=== PATIENT | female | born 1940 | race Caucasian/White ===

== ENCOUNTER 2018-04-28 06:39 | Inpatient (IN) ==
[2018-04-28 07:44] LABS: Basophils % 0.3 % (0.0-0.8); Eosinophils # 0.2 10*3/uL (0.0-0.87); Eosinophils % 1.1 % (0.00-10.9); Hematocrit 36.8 VOL% (35.7-47.0); Hemoglobin 11.9 GM/DL (12.0-16.0); Immature Granulocytes % 1.3 %; Lymphocytes # 3.4 10*3/uL (1.4-4.0); Lymphocytes % 21.6 % (21.3-54.2); Mean Corpuscular HGB Conc 32.3 GM/DL (32-36); Mean Corpuscular Hemoglobin 33 PG (27-34); Mean Corpuscular Volume 102.5 FL (87-102); Mean Platelet Volume 13.6 FL (9.6-12.0); Monocytes # 1.1 10*3/uL (0.11-0.8); Monocytes % 7.2 % (1.7-12.7); Neutrophils # 10.9 10*3/uL (1.4-7.4); Neutrophils % 68.5 % (38.7-73.9); Platelet Count 155 T/CUMM (130-400); Red Blood Count 3.59 MC/CUMM (3.8-5.5); Red Cell Distribution Width 14.2 % (9.3-17.3); White Blood Count 15.9 T/CUMM (4-12)
[2018-04-28] MEDS ORDERED: LACTATED RINGERS 1,000 ML IV ONE (07:51)
[2018-04-28 07:52] LABS: Apearance,Urine CLEAR (Clear); Bacteria,Urine Few /HPF (Few); Bilirubin,Urine Negative (Negative); Blood, Urine Small mg/dL (Negative); Glucose,Urine (UA) Negative (Negative); Ketones,Urine Negative (Negative); Mucus,Urine Occasional /LPF (Occasional); Nitrite,Urine Negative (Negative); Protein,Urine Negative; RBC,Urine 1 /HPF (0-4); Urine Color Yellow (Yellow); Urine Urobilinogen < 2.0 EU/DL (0.2-1.0); WBC,Urine 6 /HPF (0-6)
[2018-04-28 07:53] LABS: INR 1.1; PT Patient Result 11.3 SECS; Partial Thromboplastin Time 22.9 SECS (0-40)
[2018-04-28 08:04] LABS: Lactic Acid 1.6 MMOL/L (0.4-2.0)
[2018-04-28 08:05] LABS: Troponin I Only < 0.015 NG/ML (0.00-0.045)
[2018-04-28 08:29] LABS: Albumin 3.2 G/DL (3.4-5.0); Bilirubin,Total 0.7 MG/DL (0.2-1.0); Calcium 8.6 MG/DL (8.5-10.1); Potassium 3.3 MMOL/L (3.5-5.1); Total Protein 5.9 G/DL (6.4-8.3)
[2018-04-28] MEDS ORDERED: ONDANSETRON 4 MG/2 ML VIAL ONE (08:30)
[2018-04-28] MEDS ORDERED: cefTRIAXone 1,000 MG in SODIUM CHLORIDE 0.9% 100 ML IV STA (08:52)
[2018-04-28] MEDS ORDERED: ONDANSETRON 4 MG/2 ML VIAL IV STA (09:28)
[2018-04-28] MEDS ORDERED: FUROSEMIDE 40 MG/4 ML VIAL IV STA (10:10)
[2018-04-28] MEDS ORDERED: MORPHINE 4 MG/1 ML VIAL IV PRN (11:44)
[2018-04-28] MEDS ORDERED: ONDANSETRON 4 MG/2 ML VIAL IV PRN (11:44)
[2018-04-28] MEDS: SODIUM CHLORIDE 0.9% 1,000 ML IV SCH ×2 (15:13→23:06)
[2018-04-28 16:56] LABS: Hematocrit 37.1 VOL% (35.7-47.0); Hemoglobin 11.9 GM/DL (12.0-16.0)
[2018-04-28] MEDS ORDERED: POTASSIUM CHLORIDE 20 MEQ TABLET PO ONE (20:00)
[2018-04-28] MEDS: PANTOPRAZOLE 40 MG TABLET PO SCH (20:16)
[2018-04-29 01:31] LABS: Basophils % 0.3 % (0.0-0.8); Eosinophils % 0.2 % (0.00-10.9); Hematocrit 33.2 VOL% (35.7-47.0); Hemoglobin 10.7 GM/DL (12.0-16.0); Immature Granulocytes % 0.6 %; Immature Granulocytes Absolute 0.08 #; Lymphocytes # 6.7 10*3/uL (1.4-4.0); Lymphocytes % 48.9 % (21.3-54.2); Mean Corpuscular HGB Conc 32.2 GM/DL (32-36); Mean Corpuscular Hemoglobin 33 PG (27-34); Mean Corpuscular Volume 102.5 FL (87-102); Mean Platelet Volume 12.9 FL (9.6-12.0); Monocytes # 1.4 10*3/uL (0.11-0.8); Monocytes % 10.5 % (1.7-12.7); Neutrophils # 5.4 10*3/uL (1.4-7.4); Neutrophils % 39.5 % (38.7-73.9); Platelet Count 142 T/CUMM (130-400); Red Blood Count 3.24 MC/CUMM (3.8-5.5); Red Cell Distribution Width 14.1 % (9.3-17.3); White Blood Count 13.7 T/CUMM (4-12)
[2018-04-29 01:32] LABS: Hematocrit 33.3 VOL% (35.7-47.0); Hemoglobin 10.6 GM/DL (12.0-16.0)
[2018-04-29 02:15] LABS: Calcium 7.8 MG/DL (8.5-10.1); Osmolality,Calculated 296.8 MOS/KG (273-304); Potassium 3.3 MMOL/L (3.5-5.1); Thyroid Stimulating Hormone 0.585 uIU/ml (0.358-3.74); VLDL CHOLESTEROL 13.2 MG/DL
[2018-04-29] MEDS ORDERED: MAGNESIUM SULF RIDER 4 GM in PREMIX 1 EACH IV PRN (07:43)
[2018-04-29] MEDS ORDERED: PANTOPRAZOLE 40 MG TABLET PO SCH (09:00)
[2018-04-29 09:18] LABS: Hemoglobin 10.7 GM/DL (12.0-16.0)
[2018-04-29] MEDS: PANTOPRAZOLE 40 MG TABLET PO SCH ×2 (09:19→21:16)
[2018-04-29] MEDS: cefTRIAXone 1,000 MG in SYRINGE 1 EACH IV SCH (09:23)
[2018-04-29] MEDS ORDERED: ETOMIDATE 20 MG/10 ML VIAL IV ONE (13:28)
[2018-04-29] MEDS: POTASSIUM CHLORIDE 20 MEQ TABLET PO PRN ×2 (14:35→17:24)
[2018-04-29] MEDS: SODIUM CHLORIDE 0.9% 1,000 ML IV SCH ×2 (14:35→21:16)
[2018-04-29] MEDS: MAGNESIUM SULF RIDER 2 GM in PREMIX 1 EACH IV PRN (14:36)
[2018-04-30] MEDS: ACETAMINOPHEN 325 MG TABLET PO PRN (00:49)
[2018-04-30] MEDS: SODIUM CHLORIDE 0.9% 1,000 ML IV SCH ×2 (05:26→22:09)
[2018-04-30 06:26] LABS: Basophils % 0.2 % (0.0-0.8); Eosinophils # 0.1 10*3/uL (0.0-0.87); Hematocrit 31.9 VOL% (35.7-47.0); Hemoglobin 10.4 GM/DL (12.0-16.0); Immature Granulocytes % 0.7 %; Immature Granulocytes Absolute 0.09 #; Lymphocytes # 4.9 10*3/uL (1.4-4.0); Lymphocytes % 38.1 % (21.3-54.2); Mean Corpuscular HGB Conc 32.6 GM/DL (32-36); Mean Corpuscular Hemoglobin 34 PG (27-34); Mean Corpuscular Volume 103.6 FL (87-102); Mean Platelet Volume 13.4 FL (9.6-12.0); Monocytes % 15.8 % (1.7-12.7); NRBC # 0.02 10*3/uL; Neutrophils # 5.7 10*3/uL (1.4-7.4); Neutrophils % 44.2 % (38.7-73.9); Platelet Count 125 T/CUMM (130-400); Red Blood Count 3.08 MC/CUMM (3.8-5.5); Red Cell Distribution Width 14.2 % (9.3-17.3); White Blood Count 12.9 T/CUMM (4-12)
[2018-04-30 06:55] LABS: Calcium 8.3 MG/DL (8.5-10.1); Osmolality,Calculated 292.8 MOS/KG (273-304); Potassium 3.7 MMOL/L (3.5-5.1)
[2018-04-30 07:11] LABS: Band Neutrophils 2 % (0-10); Lymphocytes 41 % (20-55); Segmented Neutrophils 50 % (50-85); Total Cells Counted 100
[2018-04-30 07:12] LABS: Acanthocytes Few; Macrocytosis 3+; Platelet Estimate Decreased
[2018-04-30] MEDS: cefTRIAXone 1,000 MG in SYRINGE 1 EACH IV SCH (08:36)
[2018-04-30] MEDS: PANTOPRAZOLE 40 MG TABLET PO SCH ×2 (08:42→22:08)
[2018-04-30] MEDS ORDERED: SKIN HEALING OINT (AQUAPHOR) 50 GM TUBE TOP PRN (13:33)
[2018-04-30] MEDS ORDERED: TUBERCULIN SKIN TEST 0.1 ML SYRINGE INTRADERM ONE (15:00)
[2018-05-01] MEDS: SODIUM CHLORIDE 0.9% 1,000 ML IV SCH ×2 (05:56→22:44)
[2018-05-01 06:50] LABS: Basophils # 0.1 10*3/uL (0.0-0.2); Basophils % 0.3 % (0.0-0.8); Eosinophils # 0.2 10*3/uL (0.0-0.87); Hematocrit 33.6 VOL% (35.7-47.0); Hemoglobin 10.9 GM/DL (12.0-16.0); Immature Granulocytes % 1.1 %; Immature Granulocytes Absolute 0.17 #; Lymphocytes # 4.2 10*3/uL (1.4-4.0); Mean Corpuscular HGB Conc 32.4 GM/DL (32-36); Mean Corpuscular Hemoglobin 33 PG (27-34); Mean Corpuscular Volume 102.1 FL (87-102); Mean Platelet Volume 13.7 FL (9.6-12.0); Monocytes # 2.2 10*3/uL (0.11-0.8); Monocytes % 14.7 % (1.7-12.7); Neutrophils # 8.1 10*3/uL (1.4-7.4); Neutrophils % 54.9 % (38.7-73.9); Platelet Count 152 T/CUMM (130-400); Red Blood Count 3.29 MC/CUMM (3.8-5.5); Red Cell Distribution Width 13.9 % (9.3-17.3); White Blood Count 14.9 T/CUMM (4-12)
[2018-05-01 07:07] LABS: Calcium 8.4 MG/DL (8.5-10.1); Osmolality,Calculated 288.8 MOS/KG (273-304); Potassium 3.5 MMOL/L (3.5-5.1)
[2018-05-01] MEDS: BISACODYL 5 MG TABLET PO SCH ×2 (09:27→16:27)
[2018-05-01] MEDS: PANTOPRAZOLE 40 MG TABLET PO SCH ×2 (09:27→20:39)
[2018-05-01] MEDS: cefTRIAXone 1,000 MG in SYRINGE 1 EACH IV SCH (09:28)
[2018-05-01] MEDS ORDERED: POLYETHYLENE GLYCOL POWDER 255 GM BOTTLE PO ONE (18:00)
[2018-05-01] MEDS ORDERED: MAGNESIUM CITRATE 300 ML BOTTLE PO ONE (21:00)
[2018-05-02] MEDS ORDERED: BISACODYL 5 MG TABLET PO SCH (03:00)
[2018-05-02] MEDS: BISACODYL 5 MG TABLET PO SCH (03:10)
[2018-05-02] MEDS ORDERED: LIDOCAINE 100 MG/5 ML SYRINGE ONE (09:00)
[2018-05-02] MEDS ORDERED: PROPOFOL 200 MG/20 ML VIAL IV ONE (09:00)
[2018-05-02] MEDS: SODIUM CHLORIDE 0.9% 1,000 ML IV SCH ×2 (09:11→14:52)
[2018-05-02] MEDS: COLESTIPOL 1 GM TABLET PO SCH ×2 (09:12→23:52)
[2018-05-02] MEDS: cefTRIAXone 1,000 MG in SYRINGE 1 EACH IV SCH (09:13)
[2018-05-02] MEDS: PANTOPRAZOLE 40 MG TABLET PO SCH ×2 (09:13→20:34)
[2018-05-02] MEDS: ACETAMINOPHEN 325 MG TABLET PO PRN (12:39)
[2018-05-03] MEDS: ACETAMINOPHEN 325 MG TABLET PO PRN (00:26)
[2018-05-03] MEDS ORDERED: OXYMETAZOLINE 0.05% NASAL SPRAY 15 ML BOTTLE ONE (06:22)
[2018-05-03] MEDS ORDERED: MUPIROCIN 2% OINT 22 GM TUBE TOP ONE (06:22)
[2018-05-03] MEDS ORDERED: LIDOCAINE 1%/EPI INJ 20 ML VIAL ONE (06:22)
[2018-05-03] MEDS ORDERED: FAMOTIDINE 20 MG TABLET PO ONE (07:00)
[2018-05-03] MEDS ORDERED: DIAZEPAM 5 MG TABLET PO ONE (07:00)
[2018-05-03 07:07] LABS: Basophils # 0.1 10*3/uL (0.0-0.2); Basophils % 0.5 % (0.0-0.8); Eosinophils # 0.2 10*3/uL (0.0-0.87); Eosinophils % 1.3 % (0.00-10.9); Immature Granulocytes % 1.2 %; Lymphocytes # 3.4 10*3/uL (1.4-4.0); Lymphocytes % 20.1 % (21.3-54.2); Mean Corpuscular HGB Conc 33.3 GM/DL (32-36); Mean Corpuscular Hemoglobin 33 PG (27-34); Mean Corpuscular Volume 100.3 FL (87-102); Mean Platelet Volume 12.9 FL (9.6-12.0); Monocytes # 2.7 10*3/uL (0.11-0.8); Monocytes % 15.8 % (1.7-12.7); NRBC # 0.03 10*3/uL; Neutrophils # 10.4 10*3/uL (1.4-7.4); Neutrophils % 61.1 % (38.7-73.9); Platelet Count 233 T/CUMM (130-400); Red Blood Count 3.29 MC/CUMM (3.8-5.5); White Blood Count 17.1 T/CUMM (4-12)
[2018-05-03 07:32] LABS: Hypochromasia 1+; Lymphocytes 18 % (20-55); Myelocytes 1 %; Segmented Neutrophils 67 % (50-85); Total Cells Counted 100
[2018-05-03 07:33] LABS: Acanthocytes Few; Howell-Jolly Bodies Slight; Macrocytosis Slight
[2018-05-03 07:34] LABS: Ovalocytes Slight; Platelet Estimate Normal
[2018-05-03 07:43] LABS: Calcium 8.8 MG/DL (8.5-10.1); Osmolality,Calculated 288.8 MOS/KG (273-304); Potassium 3.6 MMOL/L (3.5-5.1)
[2018-05-03] MEDS ORDERED: cefTRIAXone 1,000 MG VIAL ONE (08:57)
[2018-05-03] MEDS ORDERED: BACITRACIN OINT 0.9 GM PACK TOP ONE (09:30)
[2018-05-03] MEDS ORDERED: BALANCED SALT IRRIG SOLN 15 ML BOTTLE ONE (09:30)
[2018-05-03] MEDS ORDERED: BACITRACIN OPH OINT 3.5 GM TUBE ONE (09:32)
[2018-05-03] MEDS: SODIUM CHLORIDE 0.9% 1,000 ML IV SCH ×2 (10:03→16:48)
[2018-05-03] MEDS ORDERED: SEVOFLURANE 1 UNIT/15 MINUTE INH ONE (10:06)
[2018-05-03] MEDS ORDERED: fentaNYL 100 MCG/2 ML VIAL ONE (10:06)
[2018-05-03] MEDS ORDERED: PROPOFOL 200 MG/20 ML VIAL IV ONE (10:06)
[2018-05-03] MEDS ORDERED: ACETAMINOPHEN 1,000 MG/100 ML VIAL IV ONE (10:07)
[2018-05-03] MEDS ORDERED: KETAMINE 500 MG/10 ML VIAL ONE (10:07)
[2018-05-03] MEDS ORDERED: DEXAMETHASONE 10 MG/1 ML VIAL ONE (10:07)
[2018-05-03] MEDS ORDERED: ONDANSETRON 4 MG/2 ML VIAL ONE (10:07)
[2018-05-03] MEDS: cefTRIAXone 1,000 MG in SYRINGE 1 EACH IV SCH (11:04)
[2018-05-03] MEDS: MAGNESIUM SULF RIDER 2 GM in PREMIX 1 EACH IV PRN (11:04)
[2018-05-03] MEDS: PANTOPRAZOLE 40 MG TABLET PO SCH ×2 (13:52→21:22)
[2018-05-03] MEDS: POTASSIUM CHLORIDE 20 MEQ TABLET PO PRN ×2 (13:52→17:10)
[2018-05-03] MEDS: COLESTIPOL 1 GM TABLET PO SCH ×2 (16:47→21:14)
[2018-05-03] MEDS: ZINC OXIDE PASTE 113 GM TUBE TOP SCH ×2 (16:48→21:22)
[2018-05-03] MEDS: COLCHICINE 0.6 MG TABLET PO SCH ×2 (17:10→21:22)
[2018-05-04 08:54] LABS: Basophils % 0.1 % (0.0-0.8); Hematocrit 33.1 VOL% (35.7-47.0); Hemoglobin 10.6 GM/DL (12.0-16.0); Immature Granulocytes % 1.2 %; Immature Granulocytes Absolute 0.17 #; Lymphocytes # 0.9 10*3/uL (1.4-4.0); Lymphocytes % 6.3 % (21.3-54.2); Mean Corpuscular Hemoglobin 33 PG (27-34); Mean Corpuscular Volume 103.1 FL (87-102); Mean Platelet Volume 12.8 FL (9.6-12.0); Monocytes # 1.1 10*3/uL (0.11-0.8); Monocytes % 7.4 % (1.7-12.7); NRBC # 0.02 10*3/uL; Neutrophils # 12.1 10*3/uL (1.4-7.4); Platelet Count 250 T/CUMM (130-400); Red Blood Count 3.21 MC/CUMM (3.8-5.5); Red Cell Distribution Width 13.9 % (9.3-17.3); White Blood Count 14.2 T/CUMM (4-12)
[2018-05-04] MEDS: COLCHICINE 0.6 MG TABLET PO SCH (09:12)
[2018-05-04] MEDS: COLESTIPOL 1 GM TABLET PO SCH (09:12)
[2018-05-04] MEDS: TOPIRAMATE 25 MG TABLET PO SCH ×2 (09:13→15:39)
[2018-05-04] MEDS: PANTOPRAZOLE 40 MG TABLET PO SCH (09:13)
[2018-05-04 09:16] LABS: Calcium 8.8 MG/DL (8.5-10.1); Osmolality,Calculated 297.7 MOS/KG (273-304); Potassium 4.5 MMOL/L (3.5-5.1)
[2018-05-04] MEDS: ZINC OXIDE PASTE 113 GM TUBE TOP SCH (12:05)
[2018-05-04] MEDS: POLYMYXIN/TRIMETHOPRIM OPH SOL 10 ML BOTTLE LEFT EYE SCH ×7 (12:05→22:31)
[2018-05-05] MEDS: POLYMYXIN/TRIMETHOPRIM OPH SOL 10 ML BOTTLE LEFT EYE SCH ×12 (00:31→22:06)
[2018-05-05] MEDS: TOPIRAMATE 25 MG TABLET PO SCH ×4 (03:29→22:06)
[2018-05-05] MEDS: PANTOPRAZOLE 40 MG TABLET PO SCH ×3 (03:29→22:06)
[2018-05-05] MEDS: COLESTIPOL 1 GM TABLET PO SCH ×3 (03:30→22:06)
[2018-05-05] MEDS: ZINC OXIDE PASTE 113 GM TUBE TOP SCH ×3 (03:30→22:06)
[2018-05-05] MEDS: COLCHICINE 0.6 MG TABLET PO SCH ×3 (03:30→22:06)
[2018-05-05 05:56] LABS: Basophils % 0.1 % (0.0-0.8); Eosinophils % 0.2 % (0.00-10.9); Hematocrit 30.5 VOL% (35.7-47.0); Hemoglobin 9.8 GM/DL (12.0-16.0); Immature Granulocytes % 0.7 %; Immature Granulocytes Absolute 0.08 #; Lymphocytes # 1.8 10*3/uL (1.4-4.0); Mean Corpuscular HGB Conc 32.1 GM/DL (32-36); Mean Corpuscular Hemoglobin 33 PG (27-34); Mean Corpuscular Volume 101.7 FL (87-102); Mean Platelet Volume 12.8 FL (9.6-12.0); Monocytes # 1.2 10*3/uL (0.11-0.8); Monocytes % 10.2 % (1.7-12.7); NRBC # 0.04 10*3/uL; Neutrophils # 8.4 10*3/uL (1.4-7.4); Neutrophils % 72.8 % (38.7-73.9); Platelet Count 272 T/CUMM (130-400); Red Cell Distribution Width 14.4 % (9.3-17.3); White Blood Count 11.5 T/CUMM (4-12)
[2018-05-05 06:30] LABS: Calcium 8.8 MG/DL (8.5-10.1); Osmolality,Calculated 301.4 MOS/KG (273-304); Potassium 4.1 MMOL/L (3.5-5.1)
[2018-05-05] MEDS: ACETAMINOPHEN 325 MG TABLET PO PRN (22:05)
[2018-05-06] MEDS: POLYMYXIN/TRIMETHOPRIM OPH SOL 10 ML BOTTLE LEFT EYE SCH ×11 (01:35→20:57)
[2018-05-06 07:20] LABS: Basophils % 0.3 % (0.0-0.8); Eosinophils # 0.2 10*3/uL (0.0-0.87); Eosinophils % 2.3 % (0.00-10.9); Hematocrit 32.4 VOL% (35.7-47.0); Hemoglobin 10.4 GM/DL (12.0-16.0); Immature Granulocytes % 0.6 %; Immature Granulocytes Absolute 0.06 #; Lymphocytes # 2.7 10*3/uL (1.4-4.0); Lymphocytes % 25.5 % (21.3-54.2); Mean Corpuscular HGB Conc 32.1 GM/DL (32-36); Mean Corpuscular Hemoglobin 33 PG (27-34); Mean Corpuscular Volume 102.5 FL (87-102); Mean Platelet Volume 12.7 FL (9.6-12.0); Monocytes # 1.6 10*3/uL (0.11-0.8); Monocytes % 14.6 % (1.7-12.7); NRBC # 0.02 10*3/uL; Neutrophils % 56.7 % (38.7-73.9); Platelet Count 259 T/CUMM (130-400); Red Blood Count 3.16 MC/CUMM (3.8-5.5); Red Cell Distribution Width 14.2 % (9.3-17.3); White Blood Count 10.6 T/CUMM (4-12)
[2018-05-06 07:51] LABS: Calcium 8.7 MG/DL (8.5-10.1); Osmolality,Calculated 296.6 MOS/KG (273-304)
[2018-05-06] MEDS: TOPIRAMATE 25 MG TABLET PO SCH ×3 (09:49→20:56)
[2018-05-06] MEDS: COLESTIPOL 1 GM TABLET PO SCH ×2 (09:54→20:57)
[2018-05-06] MEDS: COLCHICINE 0.6 MG TABLET PO SCH ×2 (09:54→20:56)
[2018-05-06] MEDS: PANTOPRAZOLE 40 MG TABLET PO SCH ×2 (09:55→20:56)
[2018-05-06] MEDS: ZINC OXIDE PASTE 113 GM TUBE TOP SCH ×2 (09:55→23:45)
[2018-05-07] MEDS: POLYMYXIN/TRIMETHOPRIM OPH SOL 10 ML BOTTLE LEFT EYE SCH ×4 (01:55→09:29)
[2018-05-07] MEDS: COLESTIPOL 1 GM TABLET PO SCH (09:14)
[2018-05-07] MEDS: COLCHICINE 0.6 MG TABLET PO SCH (09:15)
[2018-05-07] MEDS: PANTOPRAZOLE 40 MG TABLET PO SCH (09:15)
[2018-05-07] MEDS: TOPIRAMATE 25 MG TABLET PO SCH (09:15)
[2018-05-07] MEDS: ZINC OXIDE PASTE 113 GM TUBE TOP SCH (09:49)
[2018-05-07 10:57] VITALS: BP 123/66
== END 2018-05-07 10:55 | DRG 982 ==
LOC: EDUNIT# → EDBD → N.ED 06:39 → N.EDINP 11:44 → SUATTDRO 11:44 → N.5E 12:55
PROVIDERS: ADMIT Internal Medicine; ATTEND Internal Medicine
PROC: COLONBX (2018-05-02 07:35)

== ENCOUNTER 2018-06-04 17:05 | Observation (INO) ==
[2018-06-04 19:42] LABS: Basophils # 0.1 10*3/uL (0.0-0.2); Basophils % 0.8 % (0.0-0.8); Eosinophils # 0.2 10*3/uL (0.0-0.87); Eosinophils % 1.6 % (0.00-10.9); Hematocrit 39.4 VOL% (35.7-47.0); Hemoglobin 12.4 GM/DL (12.0-16.0); Immature Granulocytes % 0.4 %; Immature Granulocytes Absolute 0.04 #; Lymphocytes # 2.2 10*3/uL (1.4-4.0); Lymphocytes % 22.8 % (21.3-54.2); Mean Corpuscular HGB Conc 31.5 GM/DL (32-36); Mean Corpuscular Hemoglobin 32 PG (27-34); Mean Corpuscular Volume 101.8 FL (87-102); Mean Platelet Volume 12.2 FL (9.6-12.0); Monocytes # 1.3 10*3/uL (0.11-0.8); Monocytes % 12.9 % (1.7-12.7); Neutrophils % 61.5 % (38.7-73.9); Platelet Count 334 T/CUMM (130-400); Red Blood Count 3.87 MC/CUMM (3.8-5.5); Red Cell Distribution Width 14.6 % (9.3-17.3); White Blood Count 9.7 T/CUMM (4-12)
[2018-06-04 19:57] LABS: PT Patient Result 10.6 SECS; Partial Thromboplastin Time 23.3 SECS (0-40)
[2018-06-04 20:07] LABS: Calcium 9.9 MG/DL (8.5-10.1); Osmolality,Calculated 291.6 MOS/KG (273-304)
[2018-06-05 07:27] LABS: Basophils # 0.1 10*3/uL (0.0-0.2); Basophils % 0.7 % (0.0-0.8); Eosinophils # 0.3 10*3/uL (0.0-0.87); Eosinophils % 2.7 % (0.00-10.9); Hematocrit 35.3 VOL% (35.7-47.0); Hemoglobin 11.3 GM/DL (12.0-16.0); Immature Granulocytes % 0.6 %; Immature Granulocytes Absolute 0.06 #; Lymphocytes # 1.8 10*3/uL (1.4-4.0); Lymphocytes % 18.4 % (21.3-54.2); Mean Corpuscular Hemoglobin 32 PG (27-34); Mean Corpuscular Volume 99.2 FL (87-102); Mean Platelet Volume 12.5 FL (9.6-12.0); Monocytes # 1.4 10*3/uL (0.11-0.8); Neutrophils # 6.1 10*3/uL (1.4-7.4); Neutrophils % 63.6 % (38.7-73.9); Platelet Count 323 T/CUMM (130-400); Red Blood Count 3.56 MC/CUMM (3.8-5.5); Red Cell Distribution Width 14.4 % (9.3-17.3); White Blood Count 9.6 T/CUMM (4-12)
[2018-06-05 08:03] VITALS: BP 122/70
[2018-06-05 08:04] LABS: Albumin 2.8 G/DL (3.4-5.0); Bilirubin,Total 0.8 MG/DL (0.2-1.0); Calcium 9.8 MG/DL (8.5-10.1); Osmolality,Calculated 294.4 MOS/KG (273-304); Potassium 3.9 MMOL/L (3.5-5.1); Total Protein 5.6 G/DL (6.4-8.3)
== END 2018-06-05 12:45 | disposition swing bed (61) ==
LOC: EDUNIT# → N.ED 17:05 → INTOOBSV 20:45 → N.EDINP 20:45 → N.5E 21:26
PROVIDERS: ADMIT Internal Medicine; ATTEND Internal Medicine

== ENCOUNTER 2019-04-26 20:48 | Inpatient (IN) ==
[2019-04-26 21:26] LABS: Basophils # 0.2 10*3/uL (0.0-0.2); Basophils % 0.6 % (0.0-0.8); Eosinophils # 0.2 10*3/uL (0.0-0.87); Eosinophils % 0.7 % (0.00-10.9); Hematocrit 36.8 VOL% (35.7-47.0); Hemoglobin 11.4 GM/DL (12.0-16.0); Immature Granulocytes % 0.8 %; Immature Granulocytes Absolute 0.27 #; Lymphocytes # 20.2 10*3/uL (1.4-4.0); Lymphocytes % 63.5 % (21.3-54.2); Mean Corpuscular Volume 104.5 FL (87-102); Mean Platelet Volume 13.6 FL (9.6-12.0); Monocytes % 18.9 % (1.7-12.7); NRBC # 0.04 10*3/uL; Neutrophils % 15.5 % (38.7-73.9); Platelet Count 111 T/CUMM (130-400); Red Blood Count 3.52 MC/CUMM (3.8-5.5); Red Cell Distribution Width 14.2 % (9.3-17.3); White Blood Count 31.8 T/CUMM (4-12)
[2019-04-26 21:36] LABS: INR 1.1; PT Patient Result 11.4 SECS; Partial Thromboplastin Time 22.9 SECS (0-40)
[2019-04-26 21:46] LABS: Alanine Aminotransferase 26 U/L (13-56); Albumin 3.9 G/DL (3.4-5.0); Alkaline Phosphatase 103 U/L (45-117); Aspartate Amino Transferase 23 U/L (0-37); Blood Urea Nitrogen 53 MG/DL (7-18); Calcium 9.3 MG/DL (8.5-10.1); Glucose 100 MG/DL (74-106); Osmolality,Calculated 305.4 MOS/KG (273-304); Total Protein 6.4 G/DL (6.4-8.3)
[2019-04-26 22:33] LABS: Anisocytosis 1+; Atypical Lymphocytes Few; Eosinophils 1 % (0-10); Hypochromasia 1+; Lymphocytes 48 % (20-55); Microcytosis 1+; Platelet Estimate Decreased; Polychromasia Few; Segmented Neutrophils 39 % (50-85); Smudge Cells Few; Total Cells Counted 100
[2019-04-27] MEDS ORDERED: PIPERACILLIN/TAZOBACTAM 3,375 MG in SODIUM CHLORIDE 0.9% 100 ML IV STA ×2 (00:07→00:08)
[2019-04-27] MEDS ORDERED: ACETAMINOPHEN 325 MG TABLET PO PRN (03:02)
[2019-04-27] MEDS ORDERED: ONDANSETRON 4 MG/2 ML VIAL IV PRN (03:02)
[2019-04-27] MEDS: SODIUM CHLORIDE 0.9% 1,000 ML IV SCH ×2 (03:24→18:19)
[2019-04-27 05:44] LABS: Basophils # 0.2 10*3/uL (0.0-0.2); Basophils % 0.5 % (0.0-0.8); Eosinophils # 0.2 10*3/uL (0.0-0.87); Eosinophils % 0.4 % (0.00-10.9); Hematocrit 31.7 VOL% (35.7-47.0); Hemoglobin 9.7 GM/DL (12.0-16.0); Immature Granulocytes % 0.4 %; Immature Granulocytes Absolute 0.17 #; Lymphocytes # 26.7 10*3/uL (1.4-4.0); Lymphocytes % 67.6 % (21.3-54.2); Mean Corpuscular HGB Conc 30.6 GM/DL (32-36); Mean Platelet Volume 13.4 FL (9.6-12.0); Monocytes % 21.7 % (1.7-12.7); NRBC # 0.05 10*3/uL; Neutrophils % 9.4 % (38.7-73.9); Platelet Count 95 T/CUMM (130-400); Red Blood Count 3.02 MC/CUMM (3.8-5.5); Red Cell Distribution Width 14.1 % (9.3-17.3); White Blood Count 39.6 T/CUMM (4-12)
[2019-04-27 06:20] LABS: Calcium 8.9 MG/DL (8.5-10.1); Ferritin 316.1 ng/ml (8-252); Osmolality,Calculated 303.4 MOS/KG (273-304); Risk Ratio 4.27; VLDL CHOLESTEROL 11.8 MG/DL
[2019-04-27 06:24] LABS: Folate 18.7 NG/ML (5.4-24.0); Vitamin B12 690 PG/ML (211-911)
[2019-04-27 06:30] LABS: Lymphocytes 79 % (20-55); Nucleated Red Blood Cells 2 (0-5); Platelet Estimate Decreased; Segmented Neutrophils 12 % (50-85); Total Cells Counted 100
[2019-04-27 07:19] LABS: Sedimentation Rate-Westergren 25 MM/HR (0-30)
[2019-04-27 08:50] LABS: Anisocytosis Slight; Atypical Lymphocytes 2+; Poikilocytosis 1+
[2019-04-27 08:51] LABS: Acanthocytes Few
[2019-04-27] MEDS: POLYMYXIN/TRIMETHOPRIM OPH SOL 10 ML BOTTLE LEFT EYE SCH ×11 (09:07→23:45)
[2019-04-27] MEDS: COLESTIPOL 1 GM TABLET PO SCH ×2 (10:04→20:15)
[2019-04-27] MEDS: COLCHICINE 0.6 MG CAPSULE PO SCH ×2 (10:04→20:16)
[2019-04-27] MEDS: APIXABAN 5 MG TABLET PO SCH ×2 (10:04→20:15)
[2019-04-27] MEDS: PANTOPRAZOLE 40 MG TABLET PO SCH ×2 (10:04→20:15)
[2019-04-27] MEDS: TOPIRAMATE 25 MG TABLET PO SCH ×2 (10:05→20:15)
[2019-04-27 10:14] LABS: Barbiturates Screen,Urine Negative (Negative); Benzodiazepines Screen,Urine Negative (Negative); Cannabinoid Screen,Urine Negative (Negative); Opiate Screen,Urine Negative (Negative); Phencyclidine Screen,Urine Negative (Negative)
[2019-04-27 10:18] LABS: Apearance,Urine Slightly Hazy (Clear); Bacteria,Urine Occasional /HPF (Few); Bilirubin,Urine Negative (Negative); Blood, Urine Moderate mg/dL (Negative); Glucose,Urine (UA) Negative (Negative); Ketones,Urine Negative (Negative); Mucus,Urine Occasional /LPF (Occasional); Nitrite,Urine Negative (Negative); Protein,Urine Negative; RBC,Urine 1 /HPF (0-4); Squamous Epithelial Cell,Urine Occasional /HPF (0-10); Urine Color Yellow (Yellow); Urine Specific Gravity 1.015 (1.001-1.035); Urine Urobilinogen < 2.0 EU/DL (0.2-1.0); WBC,Urine 1 /HPF (0-6)
[2019-04-27] MEDS: cefTRIAXone 1,000 MG in SYRINGE 1 EACH IV SCH (12:25)
[2019-04-28] MEDS: POLYMYXIN/TRIMETHOPRIM OPH SOL 10 ML BOTTLE LEFT EYE SCH ×8 (00:49→15:06)
[2019-04-28 04:52] LABS: Basophils # 0.3 10*3/uL (0.0-0.2); Basophils % 0.6 % (0.0-0.8); Eosinophils # 0.2 10*3/uL (0.0-0.87); Eosinophils % 0.5 % (0.00-10.9); Hematocrit 32.4 VOL% (35.7-47.0); Hemoglobin 9.7 GM/DL (12.0-16.0); Immature Granulocytes % 0.4 %; Immature Granulocytes Absolute 0.16 #; Lymphocytes # 29.3 10*3/uL (1.4-4.0); Lymphocytes % 71.2 % (21.3-54.2); Mean Corpuscular HGB Conc 29.9 GM/DL (32-36); Mean Corpuscular Volume 105.5 FL (87-102); Mean Platelet Volume 14.2 FL (9.6-12.0); Monocytes % 19.9 % (1.7-12.7); NRBC # 0.06 10*3/uL; Neutrophils % 7.4 % (38.7-73.9); Platelet Count 98 T/CUMM (130-400); Red Blood Count 3.07 MC/CUMM (3.8-5.5); Red Cell Distribution Width 14.5 % (9.3-17.3)
[2019-04-28 05:03] LABS: White Blood Count 41.1 T/CUMM (4-12)
[2019-04-28] MEDS: SODIUM CHLORIDE 0.9% 1,000 ML IV SCH (05:07)
[2019-04-28 05:19] LABS: Calcium 8.7 MG/DL (8.5-10.1); Osmolality,Calculated 300.3 MOS/KG (273-304)
[2019-04-28 05:22] LABS: Atypical Lymphocytes Few; Burr Cells Slight; Eosinophils 1 % (0-10); Hypochromasia Slight; Lymphocytes 77 % (20-55); Microcytosis Slight; Ovalocytes Slight; Platelet Estimate Decreased; Segmented Neutrophils 15 % (50-85); Smudge Cells Few; Total Cells Counted 100
[2019-04-28] MEDS: APIXABAN 5 MG TABLET PO SCH (09:07)
[2019-04-28] MEDS: TOPIRAMATE 25 MG TABLET PO SCH (09:07)
[2019-04-28] MEDS: COLESTIPOL 1 GM TABLET PO SCH (09:07)
[2019-04-28] MEDS: COLCHICINE 0.6 MG CAPSULE PO SCH (09:07)
[2019-04-28] MEDS: PANTOPRAZOLE 40 MG TABLET PO SCH (09:07)
[2019-04-28 11:50] VITALS: BP 133/67
[2019-04-28 12:31] LABS: Hemoglobin A1 (Alkaline) 97.3 % (96.5-98.5); Hemoglobin A2 (Alkaline) 2.7 % (1.5-3.5)
[2019-04-28] MEDS: cefTRIAXone 1,000 MG in SYRINGE 1 EACH IV SCH (12:34)
== END 2019-04-28 15:58 | disposition home health service (06) | DRG 69 ==
LOC: EDUNIT# → N.ED 20:48 → SUATTDRO 04-27 01:51 → N.EDINP 04-27 01:51 → N.2E 04-27 02:40
PROVIDERS: ADMIT Internal Medicine; ATTEND Internal Medicine Geriatric Medicine

== ENCOUNTER 2019-12-13 20:19 | Inpatient (IN) ==
[2019-12-13 21:29] LABS: Basophils # 0.1 10*3/uL (0.0-0.2); Basophils % 0.9 % (0.0-0.8); Eosinophils # 0.2 10*3/uL (0.0-0.87); Eosinophils % 1.7 % (0.00-10.9); Hematocrit 47.3 VOL% (35.7-47.0); Hemoglobin 14.9 GM/DL (12.0-16.0); Immature Granulocytes % 0.3 %; Immature Granulocytes Absolute 0.03 #; Lymphocytes # 1.2 10*3/uL (1.4-4.0); Mean Corpuscular HGB Conc 31.5 GM/DL (32-36); Mean Corpuscular Volume 100.6 FL (87-102); Mean Platelet Volume 11.9 FL (9.6-12.0); Monocytes % 11.5 % (1.7-12.7); Neutrophils % 71.6 % (38.7-73.9); Platelet Count 271 T/CUMM (130-400); Red Cell Distribution Width 12.2 % (9.3-17.3); White Blood Count 8.9 T/CUMM (4-12)
[2019-12-13 21:54] LABS: Albumin 3.7 G/DL (3.4-5.0); Bilirubin,Total 0.5 MG/DL (0.2-1.0); Calcium 9.1 MG/DL (8.5-10.1); Osmolality,Calculated 292.4 MOS/KG (273-304); Total Protein 7.5 G/DL (6.4-8.3)
[2019-12-13] MEDS ORDERED: CLINDAMYCIN INJ 600 MG in PREMIX 1 EACH IV STA (22:04)
[2019-12-13] MEDS ORDERED: diphenhydrAMINE CAP 25 MG CAPSULE PO PRN (22:16)
[2019-12-13] MEDS ORDERED: DOCUSATE SODIUM 100 MG CAPSULE PO PRN (22:16)
[2019-12-13] MEDS ORDERED: ACETAMINOPHEN 325 MG TABLET PO PRN (22:16)
[2019-12-13] MEDS ORDERED: ALBUTEROL 2.5 MG/3 ML NEB RESP TX PRN (22:16)
[2019-12-13] MEDS ORDERED: NICOTINE 21 MG/24 HR PATCH TRANSDERM PRN (22:16)
[2019-12-13] MEDS ORDERED: MORPHINE 4 MG/1 ML VIAL IV PRN (22:16)
[2019-12-13] MEDS ORDERED: guaiFENesin/DM ER 600-30 MG TABLET PO PRN (22:16)
[2019-12-13] MEDS ORDERED: ONDANSETRON 4 MG/2 ML VIAL IV PRN (22:16)
[2019-12-13] MEDS ORDERED: PROMETHAZINE 25 MG/1 ML VIAL IM PRN (22:16)
[2019-12-13] MEDS ORDERED: hydrALAZINE 20 MG/1 ML VIAL IV PRN (22:16)
[2019-12-13] MEDS ORDERED: ZALEPLON 5 MG CAPSULE PO PRN (22:16)
[2019-12-13] MEDS ORDERED: MECLIZINE 25 MG TABLET PO PRN (22:19)
[2019-12-14 06:27] LABS: Basophils # 0.1 10*3/uL (0.0-0.2); Eosinophils # 0.1 10*3/uL (0.0-0.87); Eosinophils % 1.7 % (0.00-10.9); Hematocrit 44.8 VOL% (35.7-47.0); Hemoglobin 14.1 GM/DL (12.0-16.0); Immature Granulocytes % 0.5 %; Immature Granulocytes Absolute 0.04 #; Lymphocytes # 1.5 10*3/uL (1.4-4.0); Lymphocytes % 17.6 % (21.3-54.2); Mean Corpuscular HGB Conc 31.5 GM/DL (32-36); Mean Corpuscular Volume 100.2 FL (87-102); Mean Platelet Volume 11.9 FL (9.6-12.0); Monocytes % 13.2 % (1.7-12.7); Platelet Count 270 T/CUMM (130-400); Red Blood Count 4.47 MC/CUMM (3.8-5.5); Red Cell Distribution Width 12.3 % (9.3-17.3); White Blood Count 8.4 T/CUMM (4-12)
[2019-12-14 06:44] LABS: Calcium 9.2 MG/DL (8.5-10.1); Osmolality,Calculated 291.1 MOS/KG (273-304)
[2019-12-14] MEDS: HEPARIN DRIP 25,000 UNITS/500 ML PREMIX IV SCH (08:03)
[2019-12-14] MEDS ORDERED: APIXABAN 5 MG PO SCH (09:00)
[2019-12-14] MEDS: COLESTIPOL 1 GM TABLET PO SCH ×2 (09:51→21:53)
[2019-12-14] MEDS: TOPIRAMATE 25 MG TABLET PO SCH ×3 (09:52→21:53)
[2019-12-14] MEDS: FUROSEMIDE 40 MG TABLET PO SCH (09:52)
[2019-12-14] MEDS: PANTOPRAZOLE 40 MG TABLET PO SCH (09:52)
[2019-12-14] MEDS: CLINDAMYCIN INJ 600 MG in PREMIX 1 EACH IV SCH ×2 (10:31→17:24)
[2019-12-14] MEDS ORDERED: HEPARIN 5,000 UNIT/1 ML VIAL IV ONE (14:08)
[2019-12-15] MEDS: CLINDAMYCIN INJ 600 MG in PREMIX 1 EACH IV SCH ×3 (03:08→17:53)
[2019-12-15 03:39] LABS: Basophils # 0.1 10*3/uL (0.0-0.2); Basophils % 1.1 % (0.0-0.8); Eosinophils # 0.1 10*3/uL (0.0-0.87); Eosinophils % 1.4 % (0.00-10.9); Hematocrit 39.3 VOL% (35.7-47.0); Hemoglobin 12.7 GM/DL (12.0-16.0); Immature Granulocytes % 0.3 %; Immature Granulocytes Absolute 0.02 #; Lymphocytes # 1.7 10*3/uL (1.4-4.0); Lymphocytes % 22.6 % (21.3-54.2); Mean Corpuscular HGB Conc 32.3 GM/DL (32-36); Monocytes % 11.8 % (1.7-12.7); Neutrophils % 62.8 % (38.7-73.9); Platelet Count 235 T/CUMM (130-400); Red Blood Count 3.97 MC/CUMM (3.8-5.5); Red Cell Distribution Width 12.4 % (9.3-17.3); White Blood Count 7.3 T/CUMM (4-12)
[2019-12-15 03:50] LABS: Calcium 8.7 MG/DL (8.5-10.1); Osmolality,Calculated 286.5 MOS/KG (273-304)
[2019-12-15] MEDS: HEPARIN DRIP 25,000 UNITS/500 ML PREMIX IV SCH ×2 (05:45→08:15)
[2019-12-15] MEDS: PANTOPRAZOLE 40 MG TABLET PO SCH (09:31)
[2019-12-15] MEDS: TOPIRAMATE 25 MG TABLET PO SCH ×3 (09:32→21:02)
[2019-12-15] MEDS: COLESTIPOL 1 GM TABLET PO SCH ×2 (09:32→21:02)
[2019-12-15] MEDS: FUROSEMIDE 40 MG TABLET PO SCH (09:32)
[2019-12-15] MEDS: DESITIN 4OZ/NYSTATIN 15 GRAM MIXTURE PASTE TOP SCH ×2 (14:41→21:02)
[2019-12-15] MEDS: SILVER SULFADIAZINE 1% CREAM 25 GM TUBE TOP SCH (17:53)
[2019-12-16] MEDS: CLINDAMYCIN INJ 600 MG in PREMIX 1 EACH IV SCH ×2 (01:47→10:10)
[2019-12-16] MEDS: HEPARIN DRIP 25,000 UNITS/500 ML PREMIX IV SCH (06:34)
[2019-12-16] MEDS ORDERED: HEPARIN 5,000 UNIT/1 ML VIAL IV ONE (07:00)
[2019-12-16 07:43] VITALS: BP 116/51
[2019-12-16] MEDS: FUROSEMIDE 40 MG TABLET PO SCH (08:23)
[2019-12-16] MEDS: TOPIRAMATE 25 MG TABLET PO SCH (08:23)
[2019-12-16] MEDS: PANTOPRAZOLE 40 MG TABLET PO SCH (08:23)
[2019-12-16] MEDS: DESITIN 4OZ/NYSTATIN 15 GRAM MIXTURE PASTE TOP SCH (08:23)
[2019-12-16] MEDS: SILVER SULFADIAZINE 1% CREAM 25 GM TUBE TOP SCH (08:26)
[2019-12-16] MEDS ORDERED: APIXABAN 5 MG TABLET PO SCH (18:00)
== END 2019-12-16 13:55 | disposition home health service (06) | DRG 300 ==
LOC: N.ED 20:19 → N.EDINP 22:16 → SUATTDRO 22:16 → N.3E 23:00
PROVIDERS: ADMIT Internal Medicine; ATTEND Internal Medicine